=== PATIENT | male | born 1995 | race Two or more races ===

== ENCOUNTER 2019-10-31 04:42 | Emergency (ER) | payer OTHER ==
[~2019-10-31] VITALS: Ht 185.4 cm; Wt 102.1 kg
[2019-10-31 04:49] VITALS: BP 151/91
[2019-10-31] MEDS ORDERED: KETOROLAC TROMETH 60MG/2ML VIAL IM ONE (05:15)
== END 2019-10-31 05:41 | disposition home or self-care (01) ==
LOC: ER 04:42
DX: M75.52 Bursitis of left shoulder (principal); M77.9 Enthesopathy, unspecified
CPT/HCPCS: 96372; 99283; J1885